=== PATIENT | female | born 1990 | race African-American/Black ===

== ENCOUNTER → 2020-12-08 | Outpatient (CLI) | payer OTHER | END | disposition home or self-care (01) | LOC: RAD 11:03 | PROVIDERS: ATTEND Family Medicine | DX: N83.202 Unspecified ovarian cyst, left side (principal); R93.89 Abnormal findings on diagnostic imaging of other specified body structures | CPT/HCPCS: 76830 ==

== ENCOUNTER 2020-12-09 11:34 | Emergency (ER) | payer OTHER ==
[~2020-12-09] VITALS: Ht 160 cm; Wt 90.8 kg
[2020-12-09 12:57] VITALS: BP 98/69
[2020-12-09 13:31] LABS: BASOPHILS % (AUTO) 1 % (0-1); EOSINOPHILS % (AUTO) 1 % (1-7); LYMPHOCYTES % (AUTO) 37 % (22-44); MEAN CORPUSCULAR HEMOGLOBIN 30.1 pg (27.0-34.8); MEAN CORPUSCULAR HGB CONC 33.4 g/dL (32.4-35.8); MEAN PLATELET VOLUME 8.1 fL (7.4-10.4); MONOCYTES % (AUTO) 7 % (2-9); NEUTROPHILS % (AUTO) 54 % (42-75); PLATELET COUNT 314 x10^3/uL (130-400); RED BLOOD COUNT 3.27 x10^6/uL (3.82-5.3); RED CELL DISTRIBUTION WIDTH 14.1 % (9.6-15.2)
--- NOTE | 2020-12-09 13:50 | NUR ---
Patient given discharge instructions and they have confirmed that they understand the instructions. Patient ambulatory with steady gait.
== END 2020-12-09 13:55 | disposition home or self-care (01) ==
LOC: ED 13:19
DX: N92.1 Excessive and frequent menstruation with irregular cycle (principal); D64.9 Anemia, unspecified; R94.31 Abnormal electrocardiogram [ECG] [EKG]
CPT/HCPCS: 36415; 85025; 86850; 86900; 99283

== ENCOUNTER 2021-02-11 23:13 | Emergency (ER) | payer OTHER ==
[~2021-02-11] VITALS: Ht 160 cm; Wt 90.6 kg
--- NOTE | 2021-02-12 00:35 | NUR ---
PT MOVED TO ROOM
[2021-02-12] MEDS ORDERED: DEXAMETHASONE 4 MG TABLET ONE (00:53)
[2021-02-12] MEDS ORDERED: ACETAMINOPHEN 500 MG TABLET ONE (00:53)
[2021-02-12] MEDS ORDERED: ACETAMINOPHEN 500 MG TABLET PO ONE (01:00)
[2021-02-12] MEDS ORDERED: DEXAMETHASONE 4 MG TABLET PO ONE (01:00)
[2021-02-12] MEDS ORDERED: KETOROLAC 30 MG/1 ML ONE (01:49)
[2021-02-12] MEDS ORDERED: KETOROLAC 30 MG/1 ML IM ONE (02:00)
[2021-02-12 02:34] VITALS: BP 104/62
== END 2021-02-12 03:48 | disposition home or self-care (01) ==
LOC: ED 23:23
DX: J06.9 Acute upper respiratory infection, unspecified (principal); R51.9 Headache, unspecified; Z20.822 Contact with and (suspected) exposure to COVID-19
CPT/HCPCS: 71045; 96372; 99283; J1885

== ENCOUNTER 2021-02-13 11:10 | Emergency (ER) | payer OTHER ==
[~2021-02-13] VITALS: Ht 160 cm; Wt 90.7 kg
[2021-02-13] MEDS ORDERED: IBUPROFEN 800 MG TABLET ONE (11:59)
[2021-02-13] MEDS ORDERED: IBUPROFEN 800 MG TABLET PO ONE (12:00)
[2021-02-13] MEDS ORDERED: SODIUM CHLORIDE 0.9% 1,000ML IVBOLUS ONE (12:00)
--- NOTE | 2021-02-13 12:01 | NUR ---
pt in gown in [facility]. pt educated on er process and poc and verbalizes understanding. dr hernandez at . call light is within reach of pt at this time.
[2021-02-13 12:50] LABS: BASOPHILS % (AUTO) 0 % (0-1); EOSINOPHILS % (AUTO) 0 % (1-7); LYMPHOCYTES % (AUTO) 22 % (22-44); MEAN CORPUSCULAR HEMOGLOBIN 24.4 pg (27.0-34.8); MEAN CORPUSCULAR HGB CONC 31.5 g/dL (32.4-35.8); MEAN PLATELET VOLUME 7.4 fL (7.4-10.4); MONOCYTES % (AUTO) 7 % (2-9); NEUTROPHILS % (AUTO) 71 % (42-75); PLATELET COUNT 308 x10^3/uL (130-400); RED BLOOD COUNT 4.09 x10^6/uL (3.82-5.3); RED CELL DISTRIBUTION WIDTH 18.4 % (9.6-15.2)
[2021-02-13 12:57] LABS: ALANINE AMINOTRANSFERASE 22 U/L (12-78); ALBUMIN 3.1 g/dL (3.4-5.0); ANION GAP 6 mmol/L (5-15); CALCIUM 7.9 mg/dL (8.5-10.1); CHLORIDE 104 mmol/L (98-107); CREATININE 0.75 mg/dL (0.55-1.02)
[2021-02-13 13:02] LABS: D-DIMER (DIC) 0.3 ug/mlFEU (0.00-0.52); PROTIME 10.9 Seconds (9.6-11.5)
[2021-02-13 13:03] LABS: ALKALINE PHOSPHATASE 42 U/L (45-117); BILIRUBIN,TOTAL 0.3 mg/dL (0.2-1.0); TOTAL PROTEIN 7.6 g/dL (6.4-8.2)
--- NOTE | 2021-02-13 13:04 | NUR ---
piv access established. bc x 2 drawn and sample walked to lab. pt vss and updated in emr.
--- NOTE | 2021-02-13 13:05 | NUR ---
pt medicated per mar.
--- NOTE | 2021-02-13 14:36 | NUR ---
ASSUMING CARE OF PT AFTER BEDSIDE REPORT FROM SKIP MORENO AND GUILHERME MORENO.
[2021-02-13 15:35] VITALS: BP 104/59
== END 2021-02-13 15:37 | disposition home or self-care (01) ==
LOC: ED 11:15
DX: U07.1 COVID-19 (principal); J18.9 Pneumonia, unspecified organism; R00.0 Tachycardia, unspecified; J45.909 Unspecified asthma, uncomplicated
CPT/HCPCS: 36415; 71045; 80053; 83605; 84145; 85025; 85049; 85379; 85384; 85610; 85730; 86140; 87040; 93005; 96360; 99285; J7030